=== PATIENT | female | born 1975 | race African-American/Black ===

== ENCOUNTER 2020-01-31 15:51 | Emergency (ER) | payer OTHER, SELFPAY ==
[2020-01-31 16:01] VITALS: BP 140/87; PULSE 87; RESP 16; TEMP 37.2; O2SAT 100
--- NOTE | 2020-01-31 16:18 | ED.EXTPRO ---
HPI - Extremity Problem General Chief complaint: Extremity Problem,Nontraumatic Stated complaint: servere pain in left arm Source: patient Mode of arrival: ambulatory Limitations: no limitations History of Present Illness HPI Narrative: Patient is a 44-year-old female who presents complaining of left wrist pain. Patient reports pain awakening her at night 2 days ago to left wrist that radiates into hand and fingers. She denies decreased range of motion, she denies numbness and tingling to the fingers. She reports the pain as pressure and throbbing. She denies taking [id number] medications at this time. She reports mild swelling starting at her wrist this a.m. She denies a history of DVTs. She denies any significant medical history. 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 MD Complaint: extremity pain Related Data Allergies Allergy/AdvReac Type Severity Reaction Status Date / Time Penicillins Allergy Unknown Hives Verified 01/31/20 15:58 Review of Systems Review of Systems: Narrative: CONSTITUTIONAL: Denies fever, chills, or sweats. EYES: Denies visual changes, redness, or discharge. ENT: Denies rhinorrhea, congestion, sore throat, or otalgia. CARDIOVASCULAR: Denies chest pain, palpitations, or edema. RESPIRATORY: Denies cough or dyspnea. GASTROINTESTINAL: Denies abdominal pain, nausea, vomiting, or diarrhea. GENITOURINARY: Denies dysuria or hematuria. SKIN: Denies rash or itching. MUSCULOSKELETAL: Left wrist and hand pain NEUROLOGIC: Denies headache, numbness, dizziness, or weakness. PSYCHIATRIC: Denies anxiety or depression. PMFSH Past Medical History Medical History Anemia Asthma Pneumonia Umbilical hernia Surgical History Surgical History H/O tubal ligation Family History Family History Mother Hypertension Asthma Family history of rheumatoid arthritis Family history of type 2 diabetes mellitus, Onset Age: 50 Sibling Patient's brother is in good health Other Diabetes mellitus Social History Social History Smoking status: Current every day smoker Smoking end date: 03/05/04 Alcohol intake: current Exam Narrative: Exam Narrative: GENERAL: Well-appearing, well-nourished, and in no acute distress. HEAD: Normocephalic, atraumatic. EYES: EOMI. No redness or drainage. Conjunctiva are normal. ENT: Mucous membranes pink and moist. CHEST: No respiratory distress. HEART: Regular rate and rhythm. EXTREMITIES: Normal range of motion. Mild edema at left wrist. Distal sensation intact, good capillary refill. SKIN: Warm, dry, no rash. NEURO: No focal deficits. Alert and oriented x3. Gait steady. PSYCH: Normal affect. No signs of depression or anxiety. Course Vital Signs Vital signs: Vital Signs Temperature 37.2 C 01/31/20 16:01 Pulse Rate 87 01/31/20 16:01 Respiratory Rate 16 01/31/20 16:01 Blood Pressure 140/87 01/31/20 16:01 Pulse Oximetry 100 01/31/20 16:01 Temperature 37.2 C 01/31/20 16:01 Pulse Rate 87 01/31/20 16:01 Respiratory Rate 16 01/31/20 16:01 Blood Pressure 140/87 01/31/20 16:01 Pulse Oximetry 100 01/31/20 16:01 Reviewed. Patient has been instructed to follow-up with her PCP regarding her blood pressure. MDM - Extremity (Nontraumatic) MDM Narrative Medical decision making narrative: Patient appears to have likely carpal tunnel. Discussed the use of a wrist splint as well as NSAIDs for pain. Follow-up to be given to hand surgery. Patient also given follow-up PCP. Patient is stable for discharge to home with outpatient follow-up as discussed. Differential Diagnosis Differential diagnosis: Likely cellulitis, deep venous thrombosis of upper extremity and other (Carpal tunnel, fracture, sprain or strain) Critical Care Time Critical Care Time Cri
--- NOTE | 2020-01-31 16:41 | PC.NURSE ---
1622-- attempted to chart on the violet wrap order and computer is sending an error.
== END 2020-01-31 16:28 | disposition home or self-care (01) ==
PROVIDERS: Emergency Provider Nurse Practitioner
DX: G56.02 Carpal tunnel syndrome, left upper limb (principal); F17.200 Nicotine dependence, unspecified, uncomplicated
CPT/HCPCS: 99213; G0463

== ENCOUNTER 2020-07-26 13:20 | Outpatient (CLI) | payer OTHER, SELFPAY ==
[2020-07-26 13:52] LABS: Alanine Aminotransferase 13 U/L (4-35); Albumin Level 4.1 g/dL (3.5-5.1); Alkaline Phosphatase 76 U/L (38-126); Anion Gap 3 mmol/L (8-16); Aspartate Amino Transferase 31 U/L (14-36); Bilirubin,Total 0.1 mg/dL (0.2-1.3); Blood Urea Nitrogen 4 mg/dL (7-17); Calcium 9.1 mg/dL (8.4-10.2); Carbon Dioxide 27 mmol/L (22-30); Chloride 110 mmol/L (98-107); Cholesterol 161 mg/dL (0-200); Estimated Glomerular Filt Rate > 60; Glucose 94 mg/dL (65-105); HDL Direct 38 mg/dL; Potassium 4.3 mmol/L (3.4-5.0); Sodium 140 mmol/L (137-145); Triglycerides 78 mg/dL (<150)
[2020-07-26 14:04] LABS: LDL Cholesterol Direct 98 mg/dL
[2020-07-26 15:44] LABS: Hepatitis C Virus Antibody Negative (Negative)
== END 2020-07-26 13:21 | disposition home or self-care (01) ==
DX: Z11.59 Encounter for screening for other viral diseases (principal); Z13.220 Encounter for screening for lipoid disorders; Z13.1 Encounter for screening for diabetes mellitus
CPT/HCPCS: 36415; 80053; 80061; 86803

== ENCOUNTER 2020-08-04 14:24 | Outpatient (CLI) | payer OTHER, SELFPAY ==
--- NOTE | ~2020-08-04 | MM_ITS ---
EXAMINATION: MM screening isabella BI w deann HISTORY: Screening TECHNIQUE: Craniocaudal and mediolateral oblique 3-D tomosynthesis images were obtained and synthetic 2-D images were generated. CAD analysis was submitted and interpreted. COMPARISON: No prior mammogram is available for comparison at this institution. BREAST PARENCHYMAL COMPOSITION: There are scattered areas of fibroglandular density. FINDINGS: There is no evidence of suspicious mass, calcification, or architectural distortion to sugg est malignancy in either breast. There has been no suspicious interval change. IMPRESSION: 1. No mammographic evidence of malignancy. 2. Recommend routine screening mammography in one year. BI-RADS Category 1: Negative Reviewed, dictated and finalized at location A.
== END 2020-08-04 14:25 | disposition home or self-care (01) ==
LOC: ANHIMG 14:28
PROVIDERS: Visit Provider Obstetrics & Gynecology
DX: Z12.31 Encounter for screening mammogram for malignant neoplasm of breast (principal)
CPT/HCPCS: 77063; 77067

== ENCOUNTER 2020-09-28 15:55 | Emergency (ER) | payer OTHER, SELFPAY ==
[2020-09-28 16:09] VITALS: BP 117/72; PULSE 84; RESP 16; TEMP 36.8; O2SAT 99
--- NOTE | 2020-09-28 16:38 | ED.GENADULT ---
HPI - General Adult General Chief complaint: Extremity Injury, Upper Stated complaint: left hand pain Time Seen by Provider: 09/28/20 16:28 Source: patient and RN notes reviewed Mode of arrival: ambulatory Limitations: no limitations History of Present Illness HPI narrative: Patient presents today stating she woke up from sleep with a red and swollen left hand. Reports pain radiates up the forearm. Denies numbness or tingling in the hand or fingers. History of carpal tunnel. Denies history of gout or cellulitis. Currently rates her pain /10 and has been taking ibuprofen without relief. MD complaint: Left hand pain and swelling Related Data Allergies Allergy/AdvReac Type Severity Reaction Status Date / Time Penicillins Allergy Unknown Hives Verified 09/28/20 16:16 Review of Systems Review of Systems: Narrative: CONSTITUTIONAL: Denies body aches, fever, chills, or sweats. EYES: Denies visual changes, redness, or discharge. ENT: Denies rhinorrhea, congestion, sore throat, or otalgia. CARDIOVASCULAR: Denies chest pain, palpitations, or edema. RESPIRATORY: Denies cough or dyspnea. GASTROINTESTINAL: Denies abdominal pain, nausea, vomiting, or diarrhea. GENITOURINARY: Denies dysuria or hematuria. SKIN: Denies rash, itching, or wounds. MUSCULOSKELETAL: Denies back pain, or myalgia.+ Left hand pain, redness, and swelling NEUROLOGIC: Denies headache, numbness, tingling, or weakness. PSYCH: Denies depression or anxiety. [facility] Past Medical History Medical History Anemia Asthma Pneumonia Umbilical hernia Surgical History Surgical History H/O tubal ligation Family History Family History Mother Hypertension Asthma Family history of rheumatoid arthritis Family history of type 2 diabetes mellitus, Onset Age: 50 Sibling Patient's brother is in good health Other Diabetes mellitus Social History Social History Smoking status: Current every day smoker Smoking end date: 03/05/04 Alcohol intake: current Comments At time of signature, I have reviewed and agree with nursing past medical, surgical, social and family history unless otherwise noted. Please see nursing chart for further information. There is no relevant family history pertinent to the presenting complaint Exam Narrative: Exam Narrative: GENERAL: Well-appearing, well-nourished, and in no acute distress. HEAD: Normocephalic, atraumatic. EYES: EOMI. No redness or drainage. Conjunctivae normal. ENT: Mucous membranes pink and moist NECK: Normal AROM. CHEST: No respiratory distress. EXTREMITIES: Left hand: Erythema and mild edema localized to the dorsum of the hand overlying the third and fourth metacarpals and MCPs. Tender to palpation. Pain with range of motion of the fingers. Distal sensation intact. Capillary refill normal. Radial pulse normal. Full range of motion of the wrist and all fingers. SKIN: Warm, dry, no rash. Capillary refill normal. Normal skin turgor. NEURO: No focal deficits. Alert and oriented x3. Gait steady. PSYCH: Normal affect. No signs of depression or anxiety. Course Vital Signs Vital signs: Vital Signs Temperature 98.3 F 09/28/20 16:09 Pulse Rate 84 09/28/20 16:09 Respiratory Rate 16 09/28/20 16:09 Blood Pressure 117/72 09/28/20 16:09 Pulse Oximetry 99 09/28/20 16:09 Temperature 98.3 F 09/28/20 16:09 Pulse Rate 84 09/28/20 16:09 Respiratory Rate 16 09/28/20 16:09 Blood Pressure 117/72 09/28/20 16:09 Pulse Oximetry 99 09/28/20 16:09 Reviewed Medical Decision Making Differential Diagnosis Differential Diagnosis: Cellulitis, osteoarthritis, gout Vital Signs Vital Signs: Vital Signs Temperature 98.3 F 09/28/20 16:0
== END 2020-09-28 17:07 | disposition home or self-care (01) ==
PROVIDERS: Emergency Provider Nurse Practitioner
DX: H10.9 Unspecified conjunctivitis (principal); F17.200 Nicotine dependence, unspecified, uncomplicated; J45.909 Unspecified asthma, uncomplicated
CPT/HCPCS: 99213; G0463

== ENCOUNTER → 2020-12-07 03:12 | Outpatient (CLI) | payer OTHER, SELFPAY ==
[2020-12-07 19:13] LABS: SARS-CoV-2 RNA PCR Negative
== END ==
PROVIDERS: Visit Provider Obstetrics & Gynecology
DX: Z01.812 Encounter for preprocedural laboratory examination (principal); Z20.822 Contact with and (suspected) exposure to COVID-19
CPT/HCPCS: C9803; U0003; U0005

== ENCOUNTER 2020-12-10 02:22 | Day surgery (SDC) | payer OTHER, SELFPAY ==
[2020-12-06 09:24] VITALS: BMI 25.0
[2020-12-10 08:08] VITALS: BP 118/76; PULSE 88; RESP 18; TEMP 36.3; O2SAT 100
[2020-12-10] MEDS: LACTATED RINGERS 1,000 ML 30 ML IV CONT ×2 (08:16→10:48)
[2020-12-10] MEDS: ACETAMINOPHEN 500 MG TABLET 1000 MG PO (08:18)
--- NOTE | 2020-12-10 08:40 | P.PNAN_ITS ---
Anes - Initial Pre Proc Eval Procedure: Operation Date: 12/10/20 10:00 Proposed Procedures p Hysteroscopy with Amira Endometrial Ablation - Candi Garcia MD Date/Time: 12/10/20 08:40 Surgeon: Candi Garcia MD Pre Op Diagnosis: menorrhagia Patient Data Age: 45 Gender: F Height: 1.68 m Weight: 73.8 kg Last Vital Signs Temp 36.3 C L 12/10/20 08:08 Pulse 88 12/10/20 08:08 Resp 18 12/10/20 08:08 BP 118/76 12/10/20 08:08 Pulse Ox 100 12/10/20 08:08 Allergies Allergy/AdvReac Type Severity Reaction Status Date / Time Penicillins Allergy Unknown Hives Verified 12/10/20 08:26 Home Medications Medication Instructions Recorded Confirmed Type ibuprofen 800 mg PO TID PRN #20 tablet 01/31/20 12/10/20 Rx citalopram 40 mg PO HS 12/06/20 12/10/20 History Patient hx anesthesia problems: none Family hx anesthesia problems: none Results Review: All pre-operative results and documents have been reviewed as part of the pre-operative evaluation. REPLACED BY [facility] Past Medical History Medical History Anemia Asthma Pneumonia Umbilical hernia Surgical History Surgical History H/O tubal ligation Family History Family History Mother Hypertension Asthma Family history of rheumatoid arthritis Family history of type 2 diabetes mellitus, Onset Age: 50 Sibling Patient's brother is in good health Other Diabetes mellitus Social History Social History Smoking packs per day: 0.5 Smoking cigarettes per day: 10.0 Years smoked: 27 Smoking pack-years: 13.50 Smoking status: Current every day smoker Tobacco type: cigarettes Smoking end date: 03/05/04 Alcohol intake: never Substance use: current Substance use type: marijuana Other substance usage details: SMOKE Last use: 12/05/20 Living arrangements: with family Additional living arrangements comments: DAUGHTER Spiritual care concerns: No Anes - Eval Final PreProcedure Day of Procedure 12/10/20 08:40 Patient weight: overweight Heart: regular rate and rhythm Lungs: clear to auscultation Airway: Mallampati scale class II Neurological: alert and oriented Last oral intake: >/= 8 hours ASA classification: III Emergent: no Anesthetic plan: proceed Anesthesia type and monitoring: general GIVS and standard monitoring Results Review: All pre-operative results and documents have been reviewed as part of the pre-operative evaluation. Informed Consent: The patient's anesthetic plan and its attendant risks and benefits were discussed with the patient/family/POA. Questions were solicited and answers provided to the satisfaction of the patient/family/POA.
--- NOTE | 2020-12-10 09:53 | PM.IMHP ---
H&P: HPI History of Present Illness Date/Time: 12/10/20 09:53 Chief Complaint: menorrhagia Narrative: Apryl is a 45yo with longstanding menorrhagia. Hgb frequently down to 7s, recently 7.7, started IV iron yesterday. EMB benign and US wnl. Has fatigue. periods 7 days long, 4 days heavy, soaking pads in 30 min. Tubes tied PCN allergy. Review of Systems Review of Systems: All systems reviewed & are unremarkable except as noted in HPI and below PMFSH Past Medical History Medical History Anemia Asthma Pneumonia Umbilical hernia Surgical History Surgical History H/O tubal ligation Family History Family History Mother Hypertension Asthma Family history of rheumatoid arthritis Family history of type 2 diabetes mellitus, Onset Age: 50 Sibling Patient's brother is in good health Other Diabetes mellitus Social History Social History Smoking packs per day: 0.5 Smoking cigarettes per day: 10.0 Years smoked: 27 Smoking pack-years: 13.50 Smoking status: Current every day smoker Tobacco type: cigarettes Smoking end date: 03/05/04 Alcohol intake: never Substance use: current Substance use type: marijuana Other substance usage details: SMOKE Last use: 12/05/20 Living arrangements: with family Additional living arrangements comments: DAUGHTER Spiritual care concerns: No Meds Home Medications and Allergies Home Medications Medication Instructions Recorded Confirmed Type ibuprofen 800 mg PO TID PRN #20 tablet 01/31/20 12/10/20 Rx citalopram 40 mg PO HS 12/06/20 12/10/20 History Allergies Allergy/AdvReac Type Severity Reaction Status Date / Time Penicillins Allergy Unknown Hives Verified 12/10/20 08:26 Vital Signs Vital Signs - 24 hr 12/10/20 08:08 Temperature 97.3 F L Pulse Rate 88 Respiratory Rate 18 Blood Pressure 118/76 Pulse Oximetry 100 Exam Const: General: no acute distress Resp: Effort & Inspection: normal respiratory effort Auscultation: clear to auscultation bilaterally Cardio: Rate: regular rate Rhythm: regular rhythm GI: GI Palp: Yes Soft to palpation Extrem: General: normal to inspection Assessment and Plan Assessment and plan (1) Anemia due to blood loss: Code(s): D50.0 - Iron deficiency anemia secondary to blood loss (chronic) Status: Acute (2) Excessive bleeding in the premenopausal period: Code(s): N92.4 - Excessive bleeding in the premenopausal period Status: Acute Additional Plan Previously discussed RBA to endometrial ablation. Consented. Will proceed. COntinue IV iron.
--- NOTE | 2020-12-10 09:58 | WPDHPUPDATE1 ---
History and Physical Update Update Date/Time: 12/10/20 09:58 History and Physical has been reviewed, including an updated exam of the patient. There are NO changes in the patient's condition except her period started yesterday, is not yet heavy. Risks, benefits, and alternatives have been discussed and questions answered. Patient agrees to proceed with procedure.
[2020-12-10] MEDS: LIDOCAINE HCL 1% PF 30 ML VIAL 10 ML INFILTRATE (10:08)
--- NOTE | 2020-12-10 10:47 | W.PM.PROC2 ---
Procedure Note - Detailed Date of Procedure 12/10/20 Pre-op Diagnosis menorrhagia Post-op Diagnosis same Procedure Performed Hysteroscopy and Amira endometrial ablation Surgeon Candi Garcia MD [facility] Reporter none Anesthesia MAC and local Indications menorrhagia and/or menometrorrhagia Description of Procedure The patient was taken to the operating room and placed in supine position. She received MAC anesthesia and was placed in dorsal lithotomy position in stirrups. A speculum was placed and the anterior lip of the cervix was grasped with a single tooth tenaculum. A paracervical block of 10cc of 0.25% marcaine with epinephrine was done. The cervix sounded to 9cm and the cervix was 5cm long, giving a uterine cavity length of 4cm. The Amira device was set to this length. The cervix was sequentially dilated to an 8 Shilpa. The hysteroscope was inserted and the cavity visualized and appeared to be normal. The scope was removed and the Amira device inserted through the cervix easily. The balloon was inflated to attain a cervical seal. The device was activated and passed the cavity assessment. It ablated for 2 minutes. The device was removed, the hysteroscope was reinserted and the endometrium was noted to be blanched appropriately. The scope was once again removed. The tenaculum was removed and the cervix was made hemostatic with pressure. The speculum was removed. The patient was awakened from anesthesia and taken to the recovery room in stable condition. Estimated Blood Loss 10 Drains No Packing No Pathology none sent Complications No immediate complications Condition stable Disposition same day
[2020-12-10 10:50] VITALS: BP 122/69; PULSE 89; RESP 16; O2SAT 95
[2020-12-10 11:20] VITALS: BP 152/60; PULSE 82; RESP 16
[2020-12-10] MEDS: fentaNYL CITRATE INJ (*CRX) 100 MCG/2 ML VIAL 25 MCG IV PUSH ×4 (11:34→12:06)
[2020-12-10] MEDS: oxyCODONE HCL (*CRX) 5 MG TAB IR PO (11:49)
[2020-12-10 11:50] VITALS: BP 149/93; PULSE 83; RESP 16
[2020-12-10 12:20] VITALS: PULSE 73; RESP 16
== END 2020-12-10 12:34 | disposition home or self-care (01) ==
PROVIDERS: PCP Family Medicine; Visit Provider Obstetrics & Gynecology
PROC: 0U5B8ZZ Destruction of Endometrium, Via Natural or Artificial Opening Endoscopic (ICD-10-PCS; CPT 58563; principal; 2020-12-10 10:00)
DX: D50.0 Iron deficiency anemia secondary to blood loss (chronic) (principal); N92.4 Excessive bleeding in the premenopausal period; J45.909 Unspecified asthma, uncomplicated; F17.210 Nicotine dependence, cigarettes, uncomplicated; F12.90 Cannabis use, unspecified, uncomplicated
CPT/HCPCS: 58563; A9270; J1100; J1885; J2250; J2405; J2704; J3010; J7030; J7120

== ENCOUNTER 2020-12-20 12:14 | Outpatient (CLI) | payer OTHER, SELFPAY ==
[2020-12-20 12:54] LABS: Rheumatoid Factor < 8.6 IU/ML (<12)
[2020-12-20 12:58] LABS: Erythrocyte Sedimentation Rate 24 mm/hr (0-20)
== END 2020-12-20 12:15 | disposition home or self-care (01) ==
PROVIDERS: PCP Family Medicine; Visit Provider Family Medicine
DX: Z83.2 Family history of diseases of the blood and blood-forming organs and certain disorders involving the immune mechanism (principal)
CPT/HCPCS: 36415; 85652; 86038; 86430

== ENCOUNTER 2021-07-24 13:11 | Emergency (ER) | payer OTHER, SELFPAY ==
--- NOTE | ~2021-07-24 | CT_ITS ---
EXAMINATION: CT abdomen pelvis wo con DATE: 07/24/2021 13:54 INDICATION: LLQ abd pain TECHNIQUE: Computed tomography (CT) of the abdomen and pelvis was performed without intravenous contr ast. Automated exposure control and iterative reconstruction technique were employed. The dose-length product was 568.01 mGy-cm. COMPARISON: 09/27/2016. FINDINGS: Lower thorax: Unremarkable Liver: Normal. Biliary/Gallbladder: No bile duct dilation. Pancreas: No mass or duct dilation. Spleen: Normal. Adrenals:No mass. Kidneys: No mass, stone, or hydronephrosis. Distal ureters could not be traced in their entirety. GI tract: No small or large bowel dilation. Normal appendix. Mesentery/Peritoneum: No ascites, mass, or free air. Retroperitoneum: No mass. Pelvis: Pelvic organs are within normal limits. Soft Tissues: Large fat-containing umbilical hernia, slightly larger than prior study with minimal de creased inflammation at the hernia neck. Bones: No acute osseous finding. IMPRESSION: No acute abdominopelvic process. Reviewed, dictated and finalized at location K.
[2021-07-24 13:12] VITALS: BP 142/103; PULSE 90; RESP 18; TEMP 36.6; O2SAT 100
--- NOTE | 2021-07-24 13:26 | ED.GENADULT ---
HPI - General Adult General Chief complaint: Abdominal Pain Stated complaint: abd pain Time Seen by Provider: 07/24/21 13:16 Source: RN notes reviewed History of Present Illness HPI narrative: Patient presents emergency department from home for abdominal pain. Patient states pain began 2 days ago. The pain is located left lower quadrant does not radiate. Described as sharp and stabbing. Denies any fevers or chills chest pain shortness of breath nausea vomiting diarrhea or any other symptoms states she is not taking medication for the pain Related Data Home Medications Medication Instructions Recorded Confirmed citalopram 40 mg PO HS 12/06/20 12/23/20 Allergies Allergy/AdvReac Type Severity Reaction Status Date / Time Penicillins Allergy Unknown Hives Verified 12/23/20 09:16 Review of Systems Review of Systems: Gen.: Denies fevers or chills ENT: Denies congestion Respiratory: Denies shortness of breath or cough CV: Denies chest pain or palpitations GI: See HPI denies burning, urgency, frequency or hematuria Musculoskeletal: Denies back pain or muscle pain Neuro: Denies numbness, tingling, weakness or focal weakness Skin: Denies rash Except as documented, all other systems reviewed and negative [facility] Past Medical History Medical History Anemia Asthma Pneumonia Umbilical hernia Surgical History Surgical History H/O tubal ligation Family History Family History Mother Hypertension Asthma Family history of rheumatoid arthritis Family history of type 2 diabetes mellitus, Onset Age: 50 Sibling Patient's brother is in good health Other Diabetes mellitus Social History Social History Smoking packs per day: 0.5 Smoking cigarettes per day: 10.0 Years smoked: 27 Smoking pack-years: 13.50 Smoking status: Current every day smoker Tobacco type: cigarettes Smoking end date: 03/05/04 Alcohol intake: never Substance use: current Substance use type: marijuana Other substance usage details: SMOKE Last use: 12/05/20 Additional living arrangements comments: DAUGHTER Spiritual care concerns: No Exam Narrative: APPEARANCE: No acute distress, nontoxic, resting in bed HEENT: Normocephalic, atraumatic, OMM RESPIRATORY: No respiratory distress, clear to auscultation bilaterally with no rhonchi wheezing or rales CARDIOVASCULAR: RRR s murmur ABDOMINAL: Soft nondistended tender palpation left lower quadrant and left upper quadrant, no tenderness in right upper quadrant and right lower quadrant no rebound or guarding MUSCULOSKELETAl: Moves all extremities. No clubbing, cyanosis or edema. NEURO: Awake and alert. Following commands, speech normal, no focal deficits SKIN:: Warm, dry. Normal Color PSYCHIATRIC: Normal affect/mood Course Course Emergency Course: Following the CT scan the patient eloped from the emergency department Vital Signs Vital signs: Vital Signs Temperature 97.9 F 07/24/21 13:12 Pulse Rate 90 07/24/21 13:12 Respiratory Rate 18 07/24/21 13:12 Blood Pressure 142/103 H 07/24/21 13:12 Pulse Oximetry 100 07/24/21 13:12 Temperature 97.9 F 07/24/21 13:12 Pulse Rate 90 07/24/21 13:12 Respiratory Rate 18 07/24/21 13:12 Blood Pressure 142/103 H 07/24/21 13:12 Pulse Oximetry 100 07/24/21 13:12 Medical Decision Making Vital Signs Vital Signs: Vital Signs Temperature 97.9 F 07/24/21 13:12 Pulse Rate 90 07/24/21 13:12 Respiratory Rate 18 07/24/21 13:12 Blood Pressure 142/103 H 07/24/21 13:12 Pulse Oximetry 100 07/24/21 13:12 Temperature 97.9 F 07/24/21 13:12 Pulse Rate 90 07/24/21 13:12 Respiratory Rate 18 07/24/21 13:12 Blood Pressure 142/103 H 07/24/21 13:12
[2021-07-24 14:03] LABS: Basophils Percent Auto 0.4 % (0.2-1.2); Eosinophils Absolute Auto 0.2 K/mm3 (0-0.3); Eosinophils Percent Auto 2.4 % (0-4.4); Hematocrit 43.5 % (37.0-47.0); Hemoglobin 14.1 g/dL (12.0-15.0); Immature Granulocyte Absolute 0.04 K/mm3 (0.00-0.031); Immature Granulocyte Percent A 0.5 % (0-0.5); Lymphocytes Absolute Auto 2.05 K/mm3 (0.9-3.2); Mean Corpuscular HGB Conc 32.4 g/dl (32-36); Mean Corpuscular Hemoglobin 31.6 pg (26-34); Mean Corpuscular Volume 97.5 fl (80-100); Mean Platelet Volume 10.9 fl (7.4-10.4); Monocytes Absolute Auto 0.7 K/mm3 (0.1-0.6); Monocytes Percent Auto 8.3 % (2.6-8.5); Neutrophils Absolute Auto 5.2 K/mm3 (1.3-6.7); Neutrophils Percent Auto 63.4 % (45.5-73.1); Platelet Count Result 211 k/mm3 (150-375); Red Blood Count 4.46 M/mm3 (4.2-5.4); Red Cell Distribution Width 12.8 % (11.5-14.5); White Blood Count 8.2 K/mm3 (4.5-10.0)
[2021-07-24] MEDS: KETOROLAC 30 MG/ML VIAL (*BKC) IV PUSH (14:04)
[2021-07-24] MEDS: SODIUM CHLORIDE 0.9% IV 1,000 ML 999 ML IV CONT (14:04)
[2021-07-24 14:10] LABS: Add Urine Microscopic? YES; Appearance Urine Clear (Clear); Bilirubin Urine Negative (Negative); Blood Urine Trace-Intact (Negative); Color Urine Yellow (Yellow); Glucose Urine UA Negative (Negative); Ketones Urine Negative (Negative); Leukocyte Esterase Ur Negative LEU/UL (Negative); Nitrate Urine Negative (Negative); Protein Urine Negative (Negative); Urobilinogen Urine 0.2 mg/dL (<2.0)
[2021-07-24 14:16] LABS: Mucus Urine Rare /lpf; RBC Urine 0-2 /hpf (0-2); Squamous Epithelial Cell Urine Moderate /hpf (Few); WBC Urine 0-3 /hpf
[2021-07-24 14:54] LABS: Alanine Aminotransferase 13 U/L (6-35); Alkaline Phosphatase 83 U/L (38-126); Anion Gap 4 mmol/L (8-16); Aspartate Amino Transferase 22 U/L (14-36); Bilirubin,Total 0.3 mg/dL (0.2-1.3); Blood Urea Nitrogen 4 mg/dL (7-17); Calcium 8.5 mg/dL (8.4-10.2); Carbon Dioxide 26 mmol/L (22-30); Chloride 106 mmol/L (98-107); Estimated CRCL calculation 84 ml/min; Estimated Glomerular Filt Rate > 60; Glucose 111 mg/dL (65-110); Lipase 96 U/L (23-300); Potassium 3.9 mmol/L (3.4-5.0); Sodium 136 mmol/L (137-145)
--- NOTE | 2021-07-24 15:17 | PC.NURSE ---
pct notified this charge nurse that the patient is not in her room. pt removed her own iv and left it on the bed. erp dr morton notified.
== END 2021-07-24 16:20 | disposition left against medical advice (07) ==
PROVIDERS: Physician Assistant; Emergency Provider Emergency Medicine; PCP Family Medicine
DX: R10.32 Left lower quadrant pain (principal); F17.210 Nicotine dependence, cigarettes, uncomplicated
CPT/HCPCS: 36415; 74176; 80053; 81001; 81025; 83690; 85025; 96361; 96374; 99284; J1885; J7030

== ENCOUNTER 2021-12-17 16:11 | Emergency (ER) | payer OTHER, SELFPAY ==
[2021-12-17 16:20] VITALS: BP 136/89; PULSE 88; RESP 18; TEMP 36.4; O2SAT 100
--- NOTE | 2021-12-17 16:40 | ED.ABDPAIN ---
HPI - Abdominal Pain General Chief Complaint: Abdominal Pain Stated Complaint: Abdominal Pain Time Seen by Provider: 12/17/21 16:40 Source: patient and RN notes reviewed Mode of arrival: ambulatory Limitations: no limitations History of Present Illness HPI narrative: 46-year-old female presents to concern for 1 week history of lower abdominal pressure. She reports she has been getting frequent urinary tract infections after she had a uterine ablation. She denies frequency, urgency, dysuria, flank pain, fever, bodies, chills, sweats. She reports she has been taking ibuprofen for the pain which has been helping up until now. She denies abnormal vaginal discharge, constipation, diarrhea, vomiting. MD elicited complaint: abdominal pain Related Data Allergies Allergy/AdvReac Type Severity Reaction Status Date / Time Penicillins Allergy Unknown Hives Verified 12/17/21 16:14 Review of Systems Review of Systems: CONSTITUTIONAL: Denies malaise, chills, sweats, or fever. ENT: Denies rhinorrhea, congestion, sinus pain, otalgia or sore throat. CARDIOVASCULAR: Denies chest pain, palpitations, or edema. RESPIRATORY: Denies cough or dyspnea. GASTROINTESTINAL: Reports lower abdominal pressure. Denies nausea, vomiting, diarrhea, bloody, or mucous stools. GENITOURINARY: Denies dysuria or hematuria. MUSCULOSKELETAL: Denies myalgia. NEUROLOGIC: Denies headache. All systems reviewed & are unremarkable except as noted in HPI and below PMFSH Past Medical History Medical History Anemia Asthma Pneumonia Umbilical hernia Surgical History Surgical History H/O tubal ligation Family History Family History Mother Hypertension Asthma Family history of rheumatoid arthritis Family history of type 2 diabetes mellitus, Onset Age: 50 Sibling Patient's brother is in good health Other Diabetes mellitus Social History Social History Smoking packs per day: 0.5 Smoking cigarettes per day: 10.0 Years smoked: 27 Smoking pack-years: 13.50 Smoking status: Current every day smoker Tobacco type: cigarettes Smoking end date: 03/05/04 Alcohol intake: never Substance use: current Substance use type: marijuana Other substance usage details: SMOKE Last use: 12/05/20 Additional living arrangements comments: DAUGHTER Spiritual care concerns: No Comments At time of signature, agree with nursing past medical, surgical, social and family history. There is no relevant family history pertinent to the presenting complaint Exam Narrative: GENERAL: Well-appearing, well-nourished, and in no acute distress. HEAD: Normocephalic, atraumatic. EYES: PERRLA, conjunctivae clear, and EOMI. ENT: Nares clear, turbinates pink, no rhinorrhea or epistaxis. Mucous membranes moist. Oropharynx without edema, erythema, or lesions. Tonsils not enlarged and without exudate. NECK: Supple. No lymphadenopathy CHEST: Speaks in full sentences. No respiratory distress. HEART: Regular rate and rhythm. ABDOMEN: Soft, flat, nondistended. Left upper quadrant and suprapubic tenderness noted. No guarding, rebound tenderness, or rigidity. No pulsatile masses. Bowel sounds present in all four quadrants. No organomegaly. Negative Guillen?s sign. No periumbilical tenderness. No Supra public tenderness or distension. Good femoral pulses bilaterally. No hernia noted. No scars or surface trauma. SKIN: Warm, dry, no rash. NEURO: Alert and oriented x3. PSYCH: Normal mood and affect Course Course Emergency Course: Discussed negative UA with patient, discussed concern for her symptoms being caused by something other than a UTI given her lack of symptoms related to UTI and abdominal tenderness. Discussed transfer to emergency depar
== END 2021-12-17 16:56 | disposition home or self-care (01) ==
PROVIDERS: Emergency Provider Nurse Practitioner; PCP Family Medicine
DX: R10.30 Lower abdominal pain, unspecified (principal); Z87.891 Personal history of nicotine dependence
CPT/HCPCS: 81003; 87086; 99213; G0463

== ENCOUNTER 2021-12-21 05:33 | Emergency (ER) | payer OTHER, SELFPAY ==
--- NOTE | ~2021-12-21 | US_ITS ---
EXAMINATION: US pelvic complete w TV DATE: 12/21/2021 08:37 INDICATION: Ovarian torsion. TECHNIQUE: Multiple transabdominal and transvaginal sonographic images of the pelvis were obtained. COMPARISON: CT abdomen and pelvis 12/21/2021 FINDINGS: TRANSABDOMINAL ULTRASOUND: The uterus measures 7.1 x 3.9 x 4.7 cm. There is no free fluid in the pelvis. TRANSVAGINAL ULTRASOUND: The endometrial complex measures 3 mm in thickness. The right ovary measures 3.2 x 1.6 x 1.6 cm. The left ovary measures 2.9 x 1.2 x 1.2 cm. There is normal vascular flow in the ovaries. IMPRESSION: 1. Normal pelvis. Reviewed, dictated and finalized at location B. IMPRESSION: 1. Normal pelvis.
--- NOTE | ~2021-12-21 | CT_ITS ---
EXAMINATION: CT abdomen pelvis w con DATE: 12/21/2021 07:03 INDICATION: Right lower quadrant abdominal pain TECHNIQUE: Computed tomography (CT) of the abdomen and pelvis was performed with 100 mL Omnipaque-350 intravenous contrast. Automated exposure control and iterative reconstruction technique were employe d. The dose-length product was 626.03 mGy-cm. COMPARISON: 07/24/2021 FINDINGS: Mild dependent atelectasis in the bilateral lower lobes. Heart size is normal. No pericardial or pleu ral effusion. Liver, gallbladder, spleen, pancreas, bilateral adrenal glands and kidneys are normal. Bowels including the appendix are normal. Fat-containing umbilical hernia measuring 5.2 x 5.5 x 4.9 c m and extending through an 11 x 12 mm os. Bladder and retroverted uterus are normal. Small cystic les ions at the bilateral adnexa measuring 1.2 cm on the right and 8 mm on the left most likely ovarian c ysts/follicles with reportedly negative beta-hCG level. No free intraperitoneal gas or fluid. No path ologically enlarged abdominal or pelvic lymphadenopathy. Bones and soft tissues are unremarkable. IMPRESSION: 1. No acute intra-abdominal/pelvic process. Spleen is very the appendix is normal. 2. Moderate-sized fat-containing umbilical hernia. Reviewed, dictated and finalized at location A. IMPRESSION: 1. No acute intra-abdominal/pelvic process. Spleen is very the appendix is norm al. 2. Moderate-sized fat-containing umbilical hernia.
[2021-12-21 05:38] VITALS: BP 129/86; PULSE 92; RESP 16; TEMP 36.1; O2SAT 100
[2021-12-21] MEDS: MORPHINE SULFATE (*CRX) 4 MG/ML INJ IV PUSH ×2 (06:15→09:18)
[2021-12-21] MEDS: ONDANSETRON INJ 4 MG/2 ML VIAL IV PUSH (06:15)
[2021-12-21 06:21] LABS: Basophils Percent Auto 0.4 % (0.2-1.2); Eosinophils Absolute Auto 0.5 K/mm3 (0-0.3); Hematocrit 41.3 % (37.0-47.0); Hemoglobin 13.3 g/dL (12.0-15.0); Immature Granulocyte Absolute 0.03 K/mm3 (0.00-0.031); Immature Granulocyte Percent A 0.4 % (0-0.5); Lymphocytes Absolute Auto 1.74 K/mm3 (0.9-3.2); Lymphocytes Percent Auto 24.2 % (18.3-44.2); Mean Corpuscular HGB Conc 32.2 g/dl (32-36); Mean Corpuscular Hemoglobin 32.1 pg (26-34); Mean Corpuscular Volume 99.8 fl (80-100); Mean Platelet Volume 10.1 fl (7.4-10.4); Monocytes Absolute Auto 0.7 K/mm3 (0.1-0.6); Neutrophils Absolute Auto 4.2 K/mm3 (1.3-6.7); Platelet Count Result 225 k/mm3 (150-375); Red Blood Count 4.14 M/mm3 (4.2-5.4); Red Cell Distribution Width 12.9 % (11.5-14.5); White Blood Count 7.2 K/mm3 (4.5-10.0)
[2021-12-21 06:31] VITALS: BP 118/85
--- NOTE | 2021-12-21 06:31 | ED.ABDPAIN ---
HPI - Abdominal Pain General Chief Complaint: Abdominal Pain <Salvatore Kitchen MD - Last Filed: 12/21/21 06:35> Stated Complaint: ABD pain, fever <Salvatore Kitchen MD - Last Filed: 12/21/21 06:35> Time Seen by Provider: 12/21/21 05:47 <Salvatore Kitchen MD - Last Filed: 12/21/21 06:35> History of Present Illness HPI narrative: Patient is a 46-year-old female who presents to the ER with right lower quadrant abdominal pain. Worsening the last 4 to 5 days. Was seen in urgent care a few days ago and given antibiotics for UTI. Per that note is recommend she go to the ER as patient was not having any symptoms of UTI. Patient's urine did not grow out any bacteria. Patient is having no vaginal bleeding or discharge. No diarrhea or radiation into her rectum. No alleviating factors. Patient reports pain is worse with movement and palpation. She does still have an appendix. <Salvatore Kitchen MD - Last Filed: 12/21/21 06:35> Related Data Allergies/Adverse Reactions: Allergies Allergy/AdvReac Type Severity Reaction Status Date / Time Penicillins Allergy Unknown Hives Verified 12/21/21 05:34 <Salvatore Kitchen MD - Last Filed: 12/21/21 06:35> Review of Systems Review of Systems: All systems reviewed & are unremarkable except as noted in HPI and below <Salvatore Kitchen MD - Last Filed: 12/21/21 06:35> Constitutional: Constitutional: Denies chills, Denies fatigue and Denies fever(s) <Salvatore Kitchen MD - Last Filed: 12/21/21 06:35> ENT: Denies nasal congestion and Denies sore throat <Salvatore Kitchen MD - Last Filed: 12/21/21 06:35> Cardiovascular: Cardiovascular: Denies chest pain and Denies radiating jaw, neck or arm pain <Salvatore Kitchen MD - Last Filed: 12/21/21 06:35> Respiratory: Respiratory: Denies cough and Denies dyspnea <Salvatore Kitchen MD - Last Filed: 12/21/21 06:35> Gastrointestinal: Gastrointestinal: Reports abdominal pain, Denies constipation, Denies diarrhea, Reports nausea and Denies vomiting <Salvatore Kitchen MD - Last Filed: 12/21/21 06:35> Genitourinary: Genitourinary: Denies nocturia, Denies dysuria and Denies flank pain <Salvatore Kitchen MD - Last Filed: 12/21/21 06:35> PMFSH Past Medical History Medical History: Medical History Anemia Asthma Pneumonia Umbilical hernia <Salvatore Kitchen MD - Last Filed: 12/21/21 06:35> Surgical History Surgical History: Surgical History H/O tubal ligation <Salvatore Kitchen MD - Last Filed: 12/21/21 06:35> Family History Family History: Family History Mother Hypertension Asthma Family history of rheumatoid arthritis Family history of type 2 diabetes mellitus, Onset Age: 50 Sibling Patient's brother is in good health Other Diabetes mellitus <Salvatore Kitchen MD - Last Filed: 12/21/21 06:35> Social History Social History: Social History Smoking packs per day: 0.5 Smoking cigarettes per day: 10.0 Years smoked: 27 Smoking pack-years: 13.50 Smoking status: Current every day smoker Tobacco type: cigarettes Smoking end date: 03/05/04 Alcohol intake: never Substance use: current Substance use type: marijuana Other substance usage details: SMOKE Last use: 12/05/20 Additional living arrangements comments: DAUGHTER Spiritual care concerns: No <Salvatore Kitchen MD - Last Filed: 12/21/21 06:35> Exam Narrative: GENERAL: Well-appearing, well-nourished, and in no acute distress. HEAD: Normocephalic, atraumatic. EYES: PERRL and EOMI. ENT: Mucous membranes moist. CHEST: Clear to auscultation. No respiratory distress. HEART: Regular rate and rhythm. Normal peripheral pulses. ABDOMEN: Soft, TTP RLQ w/o guar
[2021-12-21 06:33] LABS: Add Urine Microscopic? NO; Appearance Urine Clear (Clear); Bilirubin Urine Negative (Negative); Blood Urine Negative (Negative); Color Urine Yellow (Yellow); Glucose Urine UA Negative (Negative); Ketones Urine Negative (Negative); Leukocyte Esterase Ur Negative LEU/UL (Negative); Nitrate Urine Negative (Negative); Protein Urine Negative (Negative); Specific Grav Ur 1.008 (1.001-1.035); Urobilinogen Urine Negative mg/dL (<2.0)
[2021-12-21 06:37] LABS: Pregnancy On Board Control Positive; Urine Pregnancy Test Negative
[2021-12-21 06:41] LABS: Alanine Aminotransferase 19 U/L (6-35); Albumin Level 4.1 g/dL (3.5-5.1); Alkaline Phosphatase 96 U/L (38-126); Anion Gap 7 mmol/L (8-16); Aspartate Amino Transferase 26 U/L (14-36); Bilirubin,Total 0.3 mg/dL (0.2-1.3); Blood Urea Nitrogen 7 mg/dL (7-17); Calcium 8.7 mg/dL (8.4-10.2); Carbon Dioxide 24 mmol/L (22-30); Chloride 106 mmol/L (98-107); Estimated CRCL calculation 73 ml/min; Estimated Glomerular Filt Rate > 60; Glucose 96 mg/dL (65-110); Lipase 65 U/L (23-300); Potassium 4.5 mmol/L (3.4-5.0); Sodium 137 mmol/L (137-145)
[2021-12-21 07:31] VITALS: BP 104/72
--- NOTE | 2021-12-21 08:12 | PC.NURSE ---
PT TO US AT THIS TIME
[2021-12-21 09:05] VITALS: PULSE 84; RESP 18; O2SAT 99
--- NOTE | 2021-12-21 09:09 | PC.NURSE ---
DMITRY FROM DR. CARTER FOR 4MG MORPHINE
[2021-12-21 09:31] VITALS: BP 134/98; PULSE 86; RESP 16; O2SAT 100
--- NOTE | 2021-12-21 10:11 | PC.NURSE ---
THIS RN WENT TO DISCHARGE PT AND FOUND THAT SHE HAS LEFT THE ROOM AND CANNOT BE FOUND ANYWHERE IN THE DEPARTMENT. I CANNOT FIND HER IV IN THE TRASH OR IN THE ROOM ANYWHERE. I HAVE CONTACTED GINNA AT [employer] AND HE REPORTS HE WILL TRY TO SEND AN OFFICER TO HER RESIDENCE TO MAKE SURE SHE DOES NOT HAVE IV IN HER ARM STILL.
== END 2021-12-21 10:19 | disposition home or self-care (01) ==
PROVIDERS: Emergency Medicine; Emergency Provider Emergency Medicine; PCP Family Medicine
DX: R10.31 Right lower quadrant pain (principal); K42.9 Umbilical hernia without obstruction or gangrene; J45.909 Unspecified asthma, uncomplicated; Z86.2 Personal history of diseases of the blood and blood-forming organs and certain disorders involving the immune mechanism; Z87.01 Personal history of pneumonia (recurrent); Z87.891 Personal history of nicotine dependence
CPT/HCPCS: 36415; 74177; 76830; 76856; 80053; 81003; 81025; 83690; 85025; 96374; 96375; 96376; 99284; J2270; J2405; Q9967

== ENCOUNTER 2022-08-19 10:58 | Emergency (ER) | payer OTHER, SELFPAY ==
[2022-08-19 11:22] VITALS: BP 93/75; PULSE 92; RESP 16; TEMP 36.6; O2SAT 99
--- NOTE | 2022-08-19 11:30 | ED.FEMALEGU ---
HPI - Female Genitourinary General Chief complaint: Urogenital-Female Stated complaint: STD Check Source: patient and RN notes reviewed History of Present Illness HPI Narrative: 46 yo F presents to urgent care with complaints of burning with urination and urinary urgency and frequency that started this morning. Pt denies any fevers, chills, vomiting, abdominal pain, back pain, or vaginal discharge. Pt does state the condom broke during sex last night and she is planning on being checked at the [facility] this upcoming week. Related Data Home Medications Medication Instructions Recorded Confirmed Probiotics 08/19/22 Allergies Allergy/AdvReac Type Severity Reaction Status Date / Time Penicillins Allergy Unknown Hives Verified 08/19/22 11:02 Review of Systems Review of Systems: Pertinent positives and pertinent negatives per HPI. [facility] Past Medical History Medical History Anemia Asthma Pneumonia Umbilical hernia Surgical History Surgical History H/O tubal ligation Family History Family History Mother Hypertension Asthma Family history of rheumatoid arthritis Family history of type 2 diabetes mellitus, Onset Age: 50 Sibling Patient's brother is in good health Other Diabetes mellitus Social History Social History Smoking packs per day: 0.5 Smoking cigarettes per day: 10.0 Years smoked: 27 Smoking pack-years: 13.50 Smoking status: Current every day smoker Tobacco type: cigarettes Smoking end date: 03/05/04 Alcohol intake: never Substance use: current Substance use type: marijuana Other substance usage details: SMOKE Last use: 12/05/20 Living arrangements: with family Additional living arrangements comments: DAUGHTER Spiritual care concerns: No Comments At the time of my signature, I reviewed and agree with the nursing past medical, surgical, social, and family history. There is no relevant family history pertinent to the patient complaint. Exam Narrative: GENERAL: This is a well-nourished, well-developed patient, in no apparent distress. HEAD: normocephalic, atraumatic. EYES: Sclera clear/white. Vision is grossly intact. EARS: External ears normal, auditory canals clear and without drainage. Hearing grossly intact. NOSE: External nose normal with no obvious nasal discharge, nares without redness, no rhinorrhea. THROAT: Mucous membranes moist, posterior pharynx clear. NECK: Neck supple, non-tender without lymphadenopathy, masses or thyromegaly. CARDIOVASCULAR: Regular rate RESPIRATORY: no respiratory distress GASTROINTESTINAL: Abdomen soft, non-tender, nondistended. Bowel sounds are active. No hepato-splenomegaly, or palpable masses. No guarding. SKIN: warm, intact with no suspicious lesions or rash, good texture and turgor. NEURO: awake, alert, and oriented to person, place and time. There were no obvious focal neurologic abnormalities. Course Course Level of Care: Express Care Visit Vital Signs Vital signs: Vital Signs Temperature 97.8 F 08/19/22 11:22 Pulse Rate 92 08/19/22 11:22 Respiratory Rate 16 08/19/22 11:22 Blood Pressure 93/75 L 08/19/22 11:22 Pulse Oximetry 99 08/19/22 11:22 Oxygen Delivery Room Air 08/19/22 11:22 Temperature 97.8 F 08/19/22 11:22 Pulse Rate 92 08/19/22 11:22 Respiratory Rate 16 08/19/22 11:22 Blood Pressure 93/75 L 08/19/22 11:22 Pulse Oximetry 99 08/19/22 11:22 Oxygen Delivery Room Air 08/19/22 11:22 Reviewed MDM - Female Genitourinary MDM Narrative Medical decision making narrative: We will send a urine culture off to the lab; if the culture identifies an organism that the prescribed antibiotic will not
== END 2022-08-19 11:38 | disposition home or self-care (01) ==
PROVIDERS: Emergency Provider Nurse Practitioner Family; PCP Family Medicine
DX: N39.0 Urinary tract infection, site not specified (principal); F17.210 Nicotine dependence, cigarettes, uncomplicated
CPT/HCPCS: 81003; 87077; 87086; 87186; 99213; G0463

== ENCOUNTER 2024-12-30 14:40 | Emergency (ER) | payer OTHER, SELFPAY ==
[2024-12-30 14:52] VITALS: BP 144/92; PULSE 86; RESP 18; TEMP 36.3; O2SAT 100
[2024-12-30 15:01] LABS: EDSTREPNEGPOS1 Negative (Negative)
--- NOTE | 2024-12-30 15:01 | ED_ITS ---
HPI - URI/Sore Throat General Chief Complaint: Upper Respiratory Infection Stated Complaint: Sore Throat/Sinus Source: patient, RN notes reviewed and old records reviewed Mode of arrival: ambulatory Limitations: no limitations History of Present Illness HPI Narrative: 49-year-old female presents to the [facility] with complaints of sore throat, sinus congestion and headache since yesterday. Did take a dose of cold medicine. Patient is most concerned that she might have strep. Onset (ago): day(s) (1) Related Data Home Medications ?Medication ?Instructions ?Recorded ?Confirmed ?Last Taken ?Type citalopram 40 mg tablet mg 12/30/24 Unknown History ergocalciferol (vitamin D2) 1,250 12/30/24 Unknown H istory mcg (50,000 unit) capsule Allergies Allergy/AdvReac Type Severity Reaction Status Date / Time Penicillins Allergy Unknown Hives Verified 08/19/22 11:02 Review of Systems Review of Systems: All systems reviewed & are unremarkable except as noted in HPI and below Constitutional: Constitutional: Reports as per HPI and Reports headache(s) ENT: Reports as per HPI, Reports nasal congestion, Reports sinus pressure and Reports sore throat Cardiovascular: Cardiovascular: Reports no additional cardiovascular complaints, Denies chest pain and Denies dyspnea Respiratory: Respiratory: Reports no additional respiratory complaints, Denies chest congestion, Denies cough and Denies dyspnea Musculoskeletal: Musculoskeletal: Reports no additional musculoskeletal complaints Integumentary/Breasts: Skin/Breast: Reports system reviewed and no additional complaints, except as docu PMFSH Past Medical History Medical History Anemia Umbilical hernia Pneumonia Asthma Surgical History Surgical History H/O tubal ligation Family History Family History Mother Hypertension Asthma Family history of rheumatoid arthritis Family history of type 2 diabetes mellitus, Onset Age: 50 Sibling Patient's brother is in good health Other Diabetes mellitus Social History Social History Smoking packs per day: 0.5 Smoking cigarettes per day: 10.0 Years smoked: 27 Smoking pack-years: 13.50 Smoking status: Current every day smoker Tobacco type: cigarettes Smoking end date: 03/05/04 Alcohol intake: never Substance use: current Substance use type: marijuana Other substance usage details: SMOKE Last use: 12/05/20 Living arrangements: with family Additional living arrangements comments: DAUGHTER Spiritual care concerns: No Comments At the time of my signature, I reviewed and agree with the nursing past medical, surgical, social, and family history. There is no relevant family history pertinent to the patient complaint. Exam Const: General: cooperative, healthy appearing, comfortable, no acute distress, well developed, alert and well nourished Nutritional Appearance: well nourished Orientation/consciousness: patient oriented x3 Limitations: no limitations HENMT: Head: normal to inspection Ears: hearing grossly normal bilaterally, external ears normal, TM's normal bilaterally, EAC's normal, mastoids normal and no periauricular adenopathy Face and sinus: normal facial exam, sinuses nontender and face symmetric Mouth: Yes Normal oral and palatal mucosa present, Yes lip normal, Yes tongue normal and Yes moist mucous membranes Throat: posterior oropharynx normal, uvula midline and no uvular edema Eyes: General: appearance normal, both eyes and all related structures Alignment and Position: alignment normal Neck: Neck: normal visual inspection, full ROM, no lymphadenopathy and no meningeal signs Chest: Chest palpation & inspection: normal inspection of the chest Resp: Effort & Inspection: normal respiratory effort and able to speak in complete sentences Auscultation: clear to auscultation bilaterally, no crackles, no rales, no rhonchi and no wheezes Cardio: Rate: regular rate Skin: General skin exam: normal color and no rashes or lesions noted Neuro: General: patient oriented x3, gait normal, moves all extremities and no meningeal signs Cognition (Neuro): normal cognition Speech: normal speech Gait exam (Neuro): Normal gait present Extrem: General: normal to inspection, full ROM, capillary refill normal and normal gait Psych: Appearance: grossly normal and well kempt Mental Status: mental status grossly normal Speech and movement: Normal speech and movement present and Clear speech present Affect: normal affect Attitude: cooperative Course Course Level of Care: Express Care Visit Vital Signs Vital signs: Vital Signs Temperature 97.4 F L 12/30/24 14:52 Pulse Rate 86 12/30/24 14:52 Respiratory Rate 18 12/30/24 14:52 Blood Pressure 144/92 H 12/30/24 14:52 Pulse Oximetry 100 12/30/24 14:52 Oxygen Delivery Room Air 12/30/24 14:52 Temperature 97.4 F L 12/30/24 14:52 Pulse Rate 86 12/30/24 14:52 Respiratory Rate 18 12/30/24 14:52 Blood Pressure 144/92 H 12/30/24 14:52 Pulse Oximetry 100 12/30/24 14:52 Oxygen Delivery Room Air 12/30/24 14:52 Reviewed MDM - URI/Sore Throat MDM Narrative Medical decision making narrative: Patient sitting in exam room. Patient is nontoxic, vitals stable. Patient 1 day history of URI symptoms. Strep test negative, flu and COVID declined. No acute findings noted on exam. Patient is appropriate for outpatient treatment of viral URI symptoms Discharge instructions reviewed with patient, as well as provided in writing per nursing staff. The instructions also include specific and strict return/GO TO THE ER as well as f/u information. All questions have been answered, and the patient deny any further questions with discharge and discharge plan. Some parts of this dictation were generated by voice recognition software and may contain typographical and/or grammatical inaccuracies. Differential Diagnosis Differential diagnosis: Likely upper respiratory infection, otitis media, sinusitis, viral infection, bronchitis, influenza and pharyngitis Lab Data Labs: Lab Results 12/30/24 Range/Units 14:51 POC Grp A Strep Screen Negative (Negative) Critical Care Time Critical Care Time Critical Care Time: No Discharge Plan Discharge Clinical Impression: Pharyngitis, Upper respiratory infection Patient Disposition: Home Condition: Stable Instructions: Pharyngitis (ED), Upper Respiratory Infection (DC) Additional Instructions: Today your blood pressure was 144/92 Follow-up with your primary care provider to have this rechecked within 2 weeks Your rapid strep swab was negative today at [facility]. A throat culture will be sent to the laboratory for further testing. If the test is positive, you will receive a phone call within 48 hours and an appropriate antibiotic will be initiated at that time. Your symptoms are likely due to a viral illness, which is not treated with antibiotics. Typically viral infections last 7-10 days, can linger for couple of weeks. It is very important to treat your symptoms. Drink plenty of water, Gatorade, Pedialyte, ice pops or Jell-O. -Alternate Tylenol and Motrin per package directions for fever or pain. You can alternate every 4 hours -Antihistamine medication such as Zyrtec/Claritin/Estefany during the day can help improve symptoms. -doing daily nasal irrigations can help relieve pressure your sinuses. Things like a Neti pot -Use Flonase twice a day for 5 days then daily to help reduce the inflammation and dry up your sinuses. -You can also use Mucinex. Be sure to drink plenty of water with this medication at least 8 ounces with every dose and it is important to drink 8 to 10 glasses of water per day. Water is a natural decongestant -Eat and drink things that are easy to swallow, like tea or soup, or popsicles. -Oral rinses such as: Salt water gargles and/or may use topical anesthetic (eg. Chloraseptic spray) or lozenges to relieve dryness or throat pain). -Frequent hand washing or hand student teaching coordinator is one of the best ways to prevent sp read of infection. -Using a vaporizer or humidifier at night will also help thin secretions and help with coughing up phlegm. -Follow up with primary care provider in 7-10 days if condition is not improving - For new or worsening symptoms go directly to the nearest ER Patient Language: Hungarian Prescriptions: No Action citalopram 40 mg tablet ergocalciferol (vitamin D2) 1,250 mcg (50,000 unit) capsule Follow-up/Referrals: Mario,NORBERT Centeno [Primary Care Provider, Unknown] - 2 Weeks Stand Alone Forms: Work/School Release IP Time of Disposition: 15:02
== END 2024-12-30 15:12 | disposition home or self-care (01) ==
PROVIDERS: Emergency Provider Nurse Practitioner; PCP Family Medicine
DX: J02.9 Acute pharyngitis, unspecified (principal); J06.9 Acute upper respiratory infection, unspecified; Z87.891 Personal history of nicotine dependence; J45.909 Unspecified asthma, uncomplicated
CPT/HCPCS: 87081; 87880; 99213; G0463